=== PATIENT | male | born 1955 | race Caucasian/White ===

== ENCOUNTER 2016-10-12 12:03 | Day surgery (SDC) | payer BC ==
[2016-10-12] MEDS ORDERED: PROPOFOL 10 MG/ML VIAL IV ONE (14:00)
[2016-10-12] MEDS ORDERED: LIDOCAINE 2% MDV (20MG/ML) 20ML VIAL IV ONE (14:00)
--- NOTE | 2016-10-16 10:10 | Operative Note ---
DATE OF SURGERY: 10/12/2016 OPERATION: COLONOSCOPY with cold forceps polypectomy. PREOPERATIVE DIAGNOSIS: Screening, average risk. POSTOPERATIVE DIAGNOSES: 1. Fair prep. 2. Sigmoid diverticulosis. 3. Cecal polyp. PROCEDURE: After informed consent was obtained from the patient, he was placed in the left lateral decubitus position in the endoscopy suite, sedated and monitored by the department of anesthesia. Digital rectal exam was unremarkable. A well-lubricated QND214 colonoscope was inserted into the rectum and advanced to the cecum. In the cecum, there was noted to be a diminutive polyp removed with a cold forceps. Preparation quality was fair, as there was particulate matter which could not be evacuated from portions of the colon and including the cecum. The areas were rinsed and aspirated as best as possible but still, small polyps may have been obscured by the prep quality. The endoscope was retracted through the ascending colon, transverse colon, and descending colon. No polyps were seen. The sigmoid colon did reveal [id number] diverticular changes. No polyps or mass lesions were seen. The rectum was unremarkable in forward and in J-turn views. The endoscope was straightened, the rectal ampulla deflated, and the endoscope was removed. RECOMMENDATIONS: The patient should follow a high-fiber diet. I recommend a repeat exam in 2 years given the preparation quality. As always, thank you for allowing me to participate in the healthcare of your patients. Syed Feldman DO CC: Dr. Mariel KRUGER
== END 2016-10-12 14:25 | disposition home or self-care (01) ==
LOC: HOP 12:03
PROVIDERS: ATTEND Internal Medicine Gastroenterology
DX: Z12.11 Encounter for screening for malignant neoplasm of colon (principal); K63.5 Polyp of colon; E78.00 Pure hypercholesterolemia, unspecified; Z79.01 Long term (current) use of anticoagulants; K57.30 Diverticulosis of large intestine without perforation or abscess without bleeding